=== PATIENT | male | born 1960 | race Caucasian/White ===

== ENCOUNTER 2024-09-12 14:57 | Emergency (ER) | payer SELFPAY ==
[~2024-09-12] VITALS: Ht 175.3 cm; Wt 100.0 kg
[2024-09-12 15:00] VITALS: O2SAT 98
[2024-09-12 15:07] VITALS: BP 200/109; PULSE 99; RESP 18; TEMP 97.8; O2SAT 100
== END 2024-09-12 19:12 | disposition left against medical advice (07) ==
LOC: ER 14:57
DX: M79.673 Pain in unspecified foot (principal); Z53.21 Procedure and treatment not carried out due to patient leaving prior to being seen by health care provider